=== PATIENT | male | born 1945 | race Caucasian/White ===

== ENCOUNTER 2017-10-17 18:52 | Emergency (ER) | payer MEDICARE, MEDICAID ==
[~2017-10-17] VITALS: Ht 167.6 cm; Wt 68.7 kg
[2017-10-17 23:39] VITALS: BP 145/80
== END 2017-10-18 03:23 | disposition left against medical advice (07) ==
LOC: ER 21:37
DX: Z53.21 Procedure and treatment not carried out due to patient leaving prior to being seen by health care provider (principal); I10 Essential (primary) hypertension